=== PATIENT | male | born 1985 | race Caucasian/White ===

== ENCOUNTER 2020-02-15 13:04 | Outpatient (CLI) | payer BC, SELFPAY ==
--- NOTE | 2020-02-15 15:00 | NEURO_ITS ---
Patient Number: [id number] Impression: # Complains of paresthesia of upper extremities. # No Carpal Tunnel Syndrome. # Mild left ulnar neuropathy across the elbow. # Normal needle/EMG exam. # Clinical correlation recommended. Nerve Conduction Studies Anti Sensory Summary Table Stim Site NR Peak (ms) P-T Amp (?V) Site1 Site2 Delta-P (ms) Dist (cm) Edwar (m/s) Left Median Anti Sensory (2-3nd Digit) Wrist 2.7 76.9 Wrist 2-3nd Digit 2.7 14.0 52 Wrist 2.7 92.9 Wrist 2-3nd Digit 2.7 14.0 52 Right Median Anti Sensory (2-3nd Digit) Wrist 2.8 54.8 Wrist 2-3nd Digit 2.8 14.0 50 Wrist 2.7 64.3 Wrist 2-3nd Digit 2.8 14.0 50 Left Radial Anti Sensory (Base 1st Digit) Wrist 1.5 56.3 Wrist Base 1st Digit 1.5 0.0 Right Radial Anti Sensory (Base 1st Digit) Wrist 2.1 30.3 Wrist Base 1st Digit 2.1 0.0 Left Ulnar Anti Sensory (5th Digit) Wrist 2.7 77.6 Wrist 5th Digit 2.7 14.0 52 Right Ulnar Anti Sensory (5th Digit) Wrist 2.7 33.7 Wrist 5th Digit 2.7 14.0 52 Motor Summary Table Stim Site NR Onset (ms) O-P Amp (mV) Site1 Site2 Delta-0 (ms) Dist (cm) Edwar (m/s) Left Median Motor (Abd Poll Brev) Wrist 2.5 4.4 Elbow Wrist 5.2 30.0 58 Elbow 7.7 3.2 Right Median Motor (Abd Poll Brev) Wrist 3.0 1.5 Elbow Wrist 4.7 30.0 64 Elbow 7.7 3.9 Left Ulnar Motor (Abd Dig Minimi) Wrist 2.1 6.9 A Elbow Wrist 5.5 29.0 53 A Elbow 7.6 5.8 B Elbow Wrist 4.2 25.0 60 B Elbow 6.3 7.4 Right Ulnar Motor (Abd Dig Minimi) Wrist 2.3 11.4 A Elbow Wrist 5.3 30.0 57 A Elbow 7.6 9.1 F Wave Studies NR F-Lat (ms) L-R F-Lat (ms) Left Median (Mrkrs) (Abd Poll Brev) 27.56 0.08 Right Median (Mrkrs) (Abd Poll Brev) 27.48 0.08 Left Ulnar (Mrkrs) (Abd Dig Min) 26.92 0.49 Right Ulnar (Mrkrs) (Abd Dig Min) 26.43 0.49 EMG Side Muscle Nerve Root Ins Act Fibs Amp Dur Recrt Comment Right 1stDorInt Ulnar C8-T1 Nml Nml Nml Nml Nml Right Ext Indicis Radial (Post Int) C7-8 Nml Nml Nml Nml Nml Right Ext Digitorum Radial (Post Int) C7-8 Nml Nml Nml Nml Nml Right BrachioRad Radial C5-6 Nml Nml Nml Nml Nml Right PronatorTeres Median C6-7 Nml Nml Nml Nml Nml Right Abd Poll Brev Median C8-T1 Nml Nml Nml Nml Nml Left 1stDorInt Ulnar C8-T1 Nml Nml Nml Nml Nml Left Ext Indicis Radial (Post Int) C7-8 Nml Nml Nml Nml Nml Left Ext Digitorum Radial (Post Int) C7-8 Nml Nml Nml Nml Nml Left BrachioRad Radial C5-6 Nml Nml Nml Nml Nml Left PronatorTeres Median C6-7 Nml Nml Nml Nml Nml Left Abd Poll Brev Median C8-T1 Nml Nml Nml Nml Nml Right ABD Dig Min Ulnar C8-T1 Nml Nml Nml Nml Nml Right Biceps Musculocut C5-6 Nml Nml Nml Nml Nml Right Triceps Radial C6-7-8 Nml Nml Nml Nml Nml Right Deltoid Axillary C5-6 Nml Nml Nml Nml Nml Left ABD Dig Min Ulnar C8-T1 Nml Nml Nml Nml Nml Left Biceps Musculocut C5-6 Nml Nml Nml Nml Nml Left Triceps Radial C6-7-8 Nml Nml Nml Nml Nml Left Deltoid Axillary C5-6 Nml Nml Nml Nml Nml MTDD
== END 2020-02-15 13:05 | disposition home or self-care (01) ==
LOC: ANHNEURO 13:09
PROVIDERS: PCP Physician Assistant; Visit Provider Physician Assistant
DX: R20.2 Paresthesia of skin (principal); G56.22 Lesion of ulnar nerve, left upper limb
CPT/HCPCS: 95886; 95911

== ENCOUNTER → 2020-11-25 08:20 | Outpatient (CLI) | payer BC, SELFPAY ==
--- NOTE | ~2020-11-25 | CT_ITS ---
EXAMINATION: CT abdomen pelvis w con INDICATION: Chronic periumbilical pain TECHNIQUE: Computed tomographic images of the abdomen and pelvis were obtained after the administrati on of 100 cc of Omnipaque 350 intravenous contrast. The dose-length product (DLP) was 510.05 mGy-cm. Automated exposure control and iterative reconstruction technique were employed. COMPARISON: 12/01/2013 FINDINGS: The lung bases are clear. The heart size is normal. There is a small sliding hiatal hernia. The liver, spleen, pancreas, gallbladder, and adrenal glands are normal. The kidneys are unremarkabl e. No pathologically enlarged abdominal or pelvic lymph nodes are identified. A circumaortic left raphael al vein is noted. There is no free intraperitoneal gas or evidence of bowel obstruction. There are ch anges of periumbilical mesh ventral hernia repair. The appendix is normal. The visualized osseous str uctures are unremarkable. IMPRESSION: 1. Changes of periumbilical mesh ventral hernia repair without CT correlate identified for the patien t's symptoms. Reviewed, dictated and finalized at location A. IMPRESSION: 1. Changes of periumbilical mesh ventral hernia repair without CT correlate betty ntified for the patient's symptoms.
== END ==
PROVIDERS: PCP Physician Assistant; Visit Provider Physician Assistant
DX: R10.33 Periumbilical pain (principal)
CPT/HCPCS: 74177; Q9967

== ENCOUNTER 2024-11-10 08:17 | Outpatient (CLI) | payer BC, SELFPAY ==
--- NOTE | 2024-11-10 | EST_ITS ---
Patient Info Name: Cm Ayala Age: 39 years : 1985 Gender: Male Ht: 65 in Wt: 185 lbs BSA: 1.99 m2 HR: 66 bpm BP: 111 / 69 mmHg Exam Date: 11/10/2024 9:42 AM Exam Location: [facility] Patient Status: Outpatient Admit Date: 11/10/2024 Staff Ordering Physician: Michael, Maisha WALLACE Attending Provider: MichaelMaisha PA-C Exercise Technologist: Shasha Pereira RDCS Exercise Physician: Edward Felix DO Exam Type: CA stress test treadmill w NM Study Info A nuclear stress test was performed. Summary 1. 1. Negative Ashkan exercise stress test for ischemic ST changes by ECG criteria. 2. 2. Good functional capacity, achieving 12 METs of workload. 3. 3. Appropriate HR response to exercise. 4. 4. Appropriate HR recovery at 1 minute post exercise. 5. 5. Nuclear scan to follow and will be reported separately. Please correlate with it. 6. 6. Patient informed of the above results. Protocol: Ashkan Stress ECG Details Stage: REST Duration (min): 1 min : 38 sec Speed (mph): 0.0 Grade (%): 0 HR (bpm): 66 SBP (mmHg): 111 DBP (mmHg): 69 METS: --- Stage: REST Duration (min): 3 min : 51 sec Speed (mph): 0.0 Grade (%): 0 HR (bpm): 73 SBP (mmHg): 111 DBP (mmHg): 69 METS: --- Stage: STAGE 1 Duration (min): 1 min : 0 sec Speed (mph): 1.7 Grade (%): 10 HR (bpm): 92 SBP (mmHg): 111 DBP (mmHg): 69 METS: --- Stage: STAGE 1 Duration (min): 2 min : 0 sec Speed (mph): 1.7 Grade (%): 10 HR (bpm): 91 SBP (mmHg): 111 DBP (mmHg): 69 METS: --- Stage: STAGE 1 Duration (min): 3 min : 0 sec Speed (mph): 1.7 Grade (%): 10 HR (bpm): 91 SBP (mmHg): 129 DBP (mmHg): 61 METS: --- Stage: STAGE 2 Duration (min): 1 min : 0 sec Speed (mph): 2.5 Grade (%): 12 HR (bpm): 99 SBP (mmHg): 129 DBP (mmHg): 61 METS: --- Stage: STAGE 2 Duration (min): 2 min : 0 sec Speed (mph): 2.5 Grade (%): 12 HR (bpm): 103 SBP (mmHg): 143 DBP (mmHg): 68 METS: --- Stage: STAGE 2 Duration (min): 3 min : 0 sec Speed (mph): 2.5 Grade (%): 12 HR (bpm): 105 SBP (mmHg): 143 DBP (mmHg): 68 METS: --- Stage: STAGE 3 Duration (min): 1 min : 0 sec Speed (mph): 3.4 Grade (%): 14 HR (bpm): 122 SBP (mmHg): 144 DBP (mmHg): 70 METS: --- Stage: STAGE 3 Duration (min): 2 min : 0 sec Speed (mph): 3.4 Grade (%): 14 HR (bpm): 125 SBP (mmHg): 144 DBP (mmHg): 70 METS: --- Stage: STAGE 3 Duration (min): 3 min : 0 sec Speed (mph): 3.4 Grade (%): 14 HR (bpm): 136 SBP (mmHg): 178 DBP (mmHg): 67 METS: --- Stage: STAGE 4 Duration (min): 1 min : 0 sec Speed (mph): 4.2 Grade (%): 16 HR (bpm): 150 SBP (mmHg): 178 DBP (mmHg): 67 METS: --- Stage: STAGE 4 Duration (min): 2 min : 0 sec Speed (mph): 4.2 Grade (%): 16 HR (bpm): 158 SBP (mmHg): 185 DBP (mmHg): 71 METS: --- Stage: STAGE 4 Duration (min): 3 min : 0 sec Speed (mph): 4.2 Grade (%): 16 HR (bpm): 161 SBP (mmHg): 185 DBP (mmHg): 71 METS: --- Stage: RECOVERY Duration (min): 0 min : 59 sec Speed (mph): 0.0 Grade (%): 0 HR (bpm): 131 SBP (mmHg): 178 DBP (mmHg): 59 METS: --- Stage: RECOVERY Duration (min): 1 min : 59 sec Speed (mph): 0.0 Grade (%): 0 HR (bpm): 113 SBP (mmHg): 178 DBP (mmHg): 59 METS: --- Stage: RECOVERY Duration (min): 2 min : 59 sec Speed (mph): 0.0 Grade (%): 0 HR (bpm): 110 SBP (mmHg): 146 DBP (mmHg): 70 METS: --- Stage: RECOVERY Duration (min): 3 min : 33 sec Speed (mph): 0.0 Grade (%): 0 HR (bpm): 105 SBP (mmHg): 146 DBP (mmHg): 70 METS: --- Rest HR: 73 bpm Peak HR: 162 bpm Rest Sys BP: 111 mmHg Peak Sys BP: 185 mmHg Max Pred HR: 180 bpm % Max Pred HR: 90 % Target HR: 153 bpm Max RPP: 29,970 bpm*mmHg Hilton Score: -2 Termination Reason: Reached target heart rate or workload Cardiac Symptoms: Shortness of breath Max ST Seg Deviation: 3 mm Total Time: 12 min : 0 sec Rest Harman BP: 69 mmHg Peak Harman BP: 71 mmHg Angina Score: None Total METS: 12.1 Resting ECG Sinus rhythm, minimal Q waves in inf/lat leads. Stress ECG No ST changes. Arrhythmias None. Report Signatures
--- NOTE | ~2024-11-10 | NM_ITS ---
NM stress w perf spect multi Procedure: The patient was stressed using Modified Ashkan protocol. Prior to the end of exercise 32.1 mCi Tc 99m IV administered. Rest imaging performed following administration of 10.2 mCi Tc 99m IV. Images were reformatted into short axis, horizontal and vertical long axis sections for visual and q uantitative analysis. Indication: Atypical chest pain Comparison: None Findings: Computer assisted qualitative and quantitative analysis of the immediate and delayed images revealed normal left ventricular perfusion without evidence of fixed or reversible perfusion abnorma lity to suggest ischemia or infarction. Normal left ventricular cavity size, wall motion and ejectio n fraction. Left ventricular ejection fraction measures 70%. Impression: 1: No scintigraphic evidence of resting or stress induced perfusion abnormality. 2: Normal left ventricle ejection fraction measuring 70%. Reviewed, dictated and finalized at location B. Impression: 1: No scintigraphic evidence of resting or stress induced perfusion abnormality . 2: Normal left ventricle ejection fraction measuring 70%.
--- OUTSIDE RECORDS SUMMARY | 2024-11-10 08:29 | XMS_ITS | Data Portability ---
Author Organization [place] - [facility], Main Office Address [address] [place] [address] Care Team Providers Care Marking Clerk Name Role Phone MANASA RHODES Primary Care Provider MANASA RHODES Referring Provider Assessment No assessment recorded. Plan of Treatment Reminders Order Date Submit Date Provider Last Modified By Organization Details Last Modified Time Details Appointments None record ed. Lab None record ed. Referral None record ed. Procedures None record ed. Surgeries None record ed. Imaging None record ed. Medication Orders None record ed. Patient TargetsNo targets recorded. Patient InstructionsNo instructions recorded. Reason for Referral None Reported. Results Created Date Observation Date Name Description Value Unit Range Abnormal Flag Note LastModifiedBy Organization Detail LastModifiedTime 07/23/20 21 07/26/2021 VITAM IN B12 vitamin B12 388 pg/mL 200-11 00 normal Pleas e Note: Altho ugh the refer ence range for vitam in B12 is 200-1 100 pg/mL , it has been repor pato that betwe en 5 and 10% of patie nts with value s betwe en 200 and 400 pg/mL may exper ience neuro psych iatri c and hemat ologi c abnor malit ies due to occul t B12 defic iency ; less than 1% of patie nts with value s above 400 pg/mL will have sympt oms. Not Available [facility] [address] [place], [address], 07/26/2021 14:32:10 07/23/20 21 07/26/2021 CBC (INCL UDES DIFF/ PLT) white blood cell count 5.1 thous and/u L 3.8-10 .8 normal Not Available [facility] [address] [place], [address], 07/26/2021 14:32:09 07/23/20 21 07/26/2021 CBC (INCL UDES DIFF/ PLT) red blood cell count 4.93 loreto on/uL 4.20-5 .80 normal Not Available [address], [address], 07/26/2021 14:32:09 07/23/20 21 07/26/2021 CBC (INCL UDES DIFF/ PLT) hemoglobin 15.1 g/dL 13.2-1 7.1 normal Not Available [address], [address], 07/26/2021 14:32:09 07/23/20 21 07/26/2021 CBC (INCL UDES DIFF/ PLT) hematocrit 43.8 % 38.5-5 0.0 normal Not Available [address], [address], 07/26/2021 14:32:09 07/23/20 21 07/26/2021 CBC (INCL UDES DIFF/ PLT) MCV 88.8 fL 80.0-1 00.0 normal Not Available [address], [address], 07/26/2021 14:32:09 07/23/20 21 07/26/2021 CBC (INCL UDES DIFF/ PLT) MCH 30.6 pg 27.0-3 3.0 normal Not Available [address], [address], 07/26/2021 14:32:09 07/23/20 21 07/26/2021 CBC (INCL UDES DIFF/ PLT) MCHC 34.5 g/dL 32.0-3 6.0 normal Not Available [address], [address], 07/26/2021 14:32:09 07/23/20 21 07/26/2021 CBC (INCL UDES DIFF/ PLT) RDW 11.9 % 11.0-1 5.0 normal Not Available [address], [address], 07/26/2021 14:32:09 07/23/20 21 07/26/2021 CBC (INCL UDES DIFF/ PLT) platelet count 267 thous and/u L 140-40 0 normal Not Available [address], [address], 07/26/2021 14:32:09 07/23/20 21 07/26/2021 CBC (INCL UDES DIFF/ PLT) MPV 11.8 fL 7.5-12 .5 normal Not Available [address], [address], 07/26/2021 14:32:07/23/20 21 07/26/2021 CBC (INCL UDES DIFF/ PLT) absolute neutrophils 2907 cells /uL 1500-7 800 normal Not Available [address], [address], 07/26/2021 14:32:09 07/23/20 21 07/26/2021 CBC (INCL UDES DIFF/ PLT) absolute lymphocytes 1744 cells /uL 850-39 00 normal Not Available [address], [address], 07/26/2021 14:32:09 07/23/20 21 07/26/2021 CBC (INCL UDES DIFF/ PLT) absolute monocytes 347 cells /uL 200-95 0 normal Not Available [address], [address], 07/26/2021 14:32:09 07/23/20 21 07/26/2021 CBC (INCL UDES DIFF/ PLT) absolute eosinophils 71 cells /uL 15-500 normal Not Available [address], [address], 07/26/2021 14:32:09 07/23/20 21 07/26/2021 CBC (INCL UDES DIFF/ PLT) absolute basophils 31 cells /uL 0-200 normal Not Available [facility] [address], [address], 07/26/2021 14:32:09 07/23/20 21 07/26/2021 CBC (INCL UDES DIFF/ PLT) neutrophils 57 % normal Not Available [facility] [address], [address], 07/26/2021 14:32:09 07/23/20 21 07/26/2021 CBC (INCL UDES DIFF/ PLT) lymphocytes 34.2 % normal Not Available [facility] [address], [address], 07/26/2021 14:32:09 07/23/20 21 07/26/2021 CBC (INCL UDES DIFF/ PLT) monocytes 6.8 % normal Not Available [facility] [address], [address], 07/26/2021 14:32:09 07/23/20 21 07/26/2021 CBC (INCL UDES DIFF/ PLT) eosinophils 1.4 % normal Not Available [facility] [address], [address], 07/26/2021 14:32:09 07/23/20 21 07/26/2021 CBC (INCL UDES DIFF/ PLT) basophils 0.6 % normal Not Available [facility] [address], [address], 07/26/2021 14:32:09 07/23/20 21 07/26/2021 COMPR EHENS MAYO METAB OLIC PANEL , PLASM A glucose 85 mg/dL 65-99 normal Fasti ng refer ence inter blair Not Available [facility] [address], [address], 07/26/2021 14:32:09 07/23/20 21 07/26/2021 COMPR EHENS MAYO METAB OLIC PANEL , PLASM A urea nitrogen (BUN) 10 mg/dL 7-25 normal Not Available [address], [address], 07/26/2021 14:32:09 07/23/20 21 07/26/2021 COMPR EHENS MAYO METAB OLIC PANEL , PLASM A creatinine 0.86 mg/dL 0.60-1 .35 normal Not Available [address], [address], 07/26/2021 14:32:09 07/23/20 21 07/26/2021 COMPR EHENS MAYO METAB OLIC PANEL , PLASM A eGFR non-afr. ecuadorean 111 mL/mi n/1.7 3m2 > or = 60 normal Not Available [address], [address], 07/26/2021 14:32:09 07/23/20 21 07/26/2021 COMPR EHENS MAYO METAB OLIC PANEL , PLASM A eGFR 128 mL/mi n/1.7 3m2 > or = 60 normal Not Available [address], [address], 07/26/2021 14:32:09 07/23/20 21 07/26/2021 COMPR EHENS MAYO METAB OLIC PANEL , PLASM A BUN/creatini ne ratio not applic able (calc ) 6-22 Not Available [address], [address], 07/26/2021 14:32:09 07/23/20 21 07/26/2021 COMPR EHENS MAYO METAB OLIC PANEL , PLASM A sodium 139 mmol/ L 135-14 6 normal Not Available [address], [address], 07/26/2021 14:32:09 07/23/20 21 07/26/2021 COMPR EHENS MAYO METAB OLIC PANEL , PLASM A potassium 3.9 mmol/ L 3.4-4. 8 normal Not Available [address], [address], 07/26/2021 14:32:09 07/23/20 21 07/26/2021 COMPR EHENS MAYO METAB OLIC PANEL , PLASM A chloride 103 mmol/ L 98-110 normal Not Available [address], [address], 07/26/2021 14:32:09 07/23/20 21 07/26/2021 COMPR EHENS MAYO METAB OLIC PANEL , PLASM A carbon dioxide 25 mmol/ L 20-32 normal Not Available [address], [address], 07/26/2021 14:32:09 07/23/20 21 07/26/2021 COMPR EHENS MAYO METAB OLIC PANEL , PLASM A calcium 9.3 mg/dL 8.6-10 .3 normal Not Available [address], [address], 07/26/2021 14:32:09 07/23/20 21 07/26/2021 COMPR EHENS MAYO METAB OLIC PANEL , PLASM A protein, total 7.2 g/dL 6.4-8. 4 normal Not Available [address], [address], 07/26/2021 14:32:09 07/23/20 21 07/26/2021 COMPR EHENS MAYO METAB OLIC PANEL , PLASM A albumin 4.8 g/dL 3.6-5. 1 normal Not Available [address], [address], 07/26/2021 14:32:09 07/23/20 21 07/26/2021 COMPR EHENS MAYO METAB OLIC PANEL , PLASM A globulin 2.4 g/dL_ (calc ) 2.2-4. 0 normal Not Available [address], [address], 07/26/2021 14:32:09 07/23/20 21 07/26/2021 COMPR EHENS MAYO METAB OLIC PANEL , PLASM A albumin/glob ulin ratio 2.0 (calc ) 0.9-2. 3 normal Not Available [address], [address], 07/26/2021 14:32:09 07/23/20 21 07/26/2021 COMPR EHENS MAYO METAB OLIC PANEL , PLASM A bilirubin, total 0.5 mg/dL 0.2-1. 2 normal Not Available [address], [address], 07/26/2021 14:32:09 07/23/20 21 07/26/2021 COMPR EHENS MAYO METAB OLIC PANEL , PLASM A alkaline phosphatase 70 U/L 36-130 normal Not Available [address], [address], 07/26/2021 14:32:09 07/23/20 21 07/26/2021 COMPR EHENS MAYO METAB OLIC PANEL , PLASM A AST 22 U/L 10-40 normal Not Available [address], [address], 07/26/2021 14:32:09 07/23/20 21 07/26/2021 COMPR EHENS MAYO METAB OLIC PANEL , PLASM A ALT 23 U/L 9-46 normal Not Available [address], [address], 07/26/2021 14:32:09 07/23/20 21 07/26/2021 TSH+F REE T4 TSH 1.09 mIU/L 0.40-4 .50 normal Not Available [address], [address], 07/26/2021 14:32:08 07/23/2007/26/2021 TSH+F REE T4 T4, free 0.9 NG/dL 0.8-1. 8 normal Not Available [address], [address], 07/26/2021 14:32:08 07/23/2007/26/2021 TESTO STERO NE, FREE, BIOAV AILAB LE AND TOTAL , MS albumin 4.8 g/dL 3.6-5. 1 Not Available [address], [address], 07/26/2021 14:32:08 07/23/2007/26/2021 TESTO STERO NE, FREE, BIOAV AILAB LE AND TOTAL , MS sex hormone binding globulin 27.1 nmol/ L 10-50 Not Available [address], [address], 07/26/2021 14:32:08 07/23/2007/26/2021 TESTO STERO NE, FREE, BIOAV AILAB LE AND TOTAL , MS testosterone , free 88.4 pg/mL 46.0-2 24.0 Not Available [address], [address], 07/26/2021 14:32:08 07/23/2007/26/2021 TESTO STERO NE, FREE, BIOAV AILAB LE AND TOTAL , MS testosterone ,bioavailabl e 193.3 NG/dL 110.0- 575.0 Not Available [address], [address], 07/26/2021 14:32:08 07/23/2007/26/2021 TESTO STERO NE, FREE, BIOAV AILAB LE AND TOTAL , MS testosterone , total, MS 560 NG/dL 250-11 00 For addit ional infor zack cooley e refer to https ://ed ucati on.qu jessedi elbaGoodRxs. com/f aq/FA Q165 (This link is being provi ded for infor randi nal/e ducat ional purpo ses only. ) (Note ) This test was devel oped and its nirmal tical perfo rmanc e yessica cteri stics have been deter mined by [employer]. It has not been clear ed or appro lincoln by the FDA. This assay has been valid ated pursu ant to the CLIA regul ation s and is used for clini jesus purpo ses. MDF med saundra n [address] [facility] [address] [facility] [address] [phone] Carter neal MD Not Available [address] [address] [place], [address], 07/26/2021 14:32:08 07/23/20 21 07/26/2021 IRON, TIBC AND KT TIN PANEL iron, total 137 mcg/d L 50-180 normal Not Available [address], [address], 07/26/2021 14:32:06 07/23/20 21 07/26/2021 IRON, TIBC AND KT TIN PANEL iron binding capacity 359 mcg/d L_(ca lc) 250-42 5 normal Not Available [address], [address], 07/26/2021 14:32:06 07/23/20 21 07/26/2021 IRON, TIBC AND KT TIN PANEL % saturation 38 %_(ca lc) 20-48 normal Not Available [address], [address], 07/26/2021 14:32:06 07/23/20 21 07/26/2021 IRON, TIBC AND KT TIN PANEL ferritin 146 NG/mL 38-380 normal Not Available [facility] [address] [address] , [place], [address], 07/26/2021 14:32:06 07/24/20 21 XR, shoul pavan, 2 or more view No observ ation record ed. [id number] [id number] [place] [address], [place], [address], 09/23/2022 17:31:35 Result Notes None recorded. Problems Name Problem SNOMED Code Status Onset Date Resolution Date Notes Provider Name and Address Organization Details Recorded Time Tobacco user 500120354 Active Not Available [facility] 3 17:30:19 Irritability and anger 140581551 Active 2021 Not Available [facility] 3 17:30:19 Acute low back pain 869159326 Active 2021 Not Available [facility] 3 17:30:19 Depressive disorder 04822309 Active 2021 Not Available [facility] 3 17:30:19 Inflammation of rotator cuff tendon 277143028 Active Not Available [facility] 3 17:30:19 Shoulder pain 47189028 Active Not Available [facility] 3 17:30:19 Feeling irritable 12892885 Active Not Available [facility] 3 17:30:19 Pain in wrist 41657925 Active Not Available [facility] 3 17:30:19 Synovial cyst of shoulder 311266944 Active 2021 Not Available [facility] 3 17:30:19 Fatigue 00029511 Active 2022 Not Available [facility] 3 17:30:20 Altered bowel function 38831182 Active 2022 Not Available [facility] 3 17:30:20 Umbilical pain 53136575 Active 2022 Not Available [facility] 3 17:30:20 Problem Notes None recorded. Procedures Surgical History Date Name Laterality Status Provider Name and Address Organization Details Recorded Time Hernia Repair completed Not Available [facility] 09/23/2022 17:29:22 other completed Not Available [facility] 07/2022 17:29:22 extraction of wisdom tooth completed Not Available [facility] 09/23/2022 17:29:22 Imaging Results Imaging Date Name Status LastModified by Organiz ation Details LastModified Time 07/24/2021 XR, shoulder, 2 or more view completed [id number] [id number] [place] [address], [place], [address], 09/23/2022 17:31:35 Procedure Notes None recorded. Medical Equipment None Reported. Allergies No known drug allergies Medications Name Sig Start Date Stop Date Status Note LastModified by Organization Details LastModified Time cyclobenz aprine 10 mg tablet TAKE 1 TABLET BY MOUTH THREE TIMES DAILY NEEDED active Not Available Not Available No t Available prednison e 10 mg tablet 11/28 completed Not Available Not Available Not Available albuterol sulfate 2.5 mg/3 mL (0.083 %) solution for nebulizat ion 08/17 completed Not Available Not Available Not Available citalopra m 10 mg tablet Take 1 tablet every day by oral route. 05/31 completed Not Available Not Available Not Available valacyclo vir 1 gram tablet TK 1 T PO TID 03/10 completed Not Available Not Available Not Available bupivacai ne HCl 0.5 % (5 mg/mL) injection solution Take 20 mg by injectio n route. 11/28 completed Not Available Not Available Not Available prednison e 20 mg tablet 04/09 completed Not Available Not Available Not Available clobetaso l 0.05 % topical cream APPLY TO INFLAMED SKIN ON ARMS AND LEGS TWICE DAILY NEEDED. AVOID FACE AND SKIN FOLDS. active Not Available Not Available No t Available prednison e 10 mg tablets in a dose pack Take 1 tab by mouth, 3 times a day for 3 daysTake 1 tab by mouth 2 times a day for 2 daysTake 1 tab by mouth once a day for 1 day 11/28 completed Not Available Not Available Not Available meloxicam 7.5 mg tablet 08/18 completed Not Available Not Available Not Available citalopra m 20 mg tablet TAKE 1.5 TABLETS BY MOUTH EVERY DAY IN THE EVENING active Not Available Not Available No t Available Kenalog 10 mg/mL suspensio n for injection In office injectio n administ ered by the provider 11/[address] [facility]: [id number] 11-12 Not Available Not Available Not Available diclofena c sodium 75 mg tablet,de layed release Take 1 tablet twice a day by oral route with meals. active Not Available Not Available No t Available methylpre dnisolone 4 mg tablets in a dose pack FOLLOW PACKAGE DIRECTIO NS 04/29 completed Not Available Not Available Not Available doxycycli ne hyclate 100 mg tablet 04/09 completed Not Available Not Available Not Available naproxen 500 mg tablet Take 1 tablet twice a day by oral route with meals. active Not Available Not Available No t Available amoxicill in 875 mg-potass ium clavulana te 125 mg tablet TK 1 T PO Q 12 H 01/25 completed Not Available Not Available Not Available Ventolin HFA 90 mcg/actua tion aerosol inhaler 03/10 completed Not Available Not Available Not Available tobramyci n 0.3 %-dexamet hasone 0.1 % eye drops,harman pension SHAKE LQ AND INT 1 GTT IN OS Q 6 H 01/27 completed Not Available Not Available Not Available Chantix Continuin g Month Celestine 1 mg tablet Take 1 tablet twice a day by oral route. 08/18 completed pt stopped it and hasnt taken it for awhile. Not Available Not Available Not Available Chantix Starting Month Box 0.5 mg (11)-1 mg (42) tablets in dose pack use as directed active Not Available Not Available No t Available Opzelura 1.5 % topical cream 10/09 completed Not Available Not Available Not Available Vitals Date Recorded Body mass index (BMI) Body height Oxygen saturation Oxygen saturation in Arterial blood by Pulse oximetry Heart rate Body temperature Body weight Systolic blood pressure Diastolic blood pressure Provider Name and Address Organization Details Last Updated DateTime 1 28.7 kg/m2 167.64 cm 97 % 97 % 68 /min 97.6 [degF] 38096 g 110 mm[Hg] 70 mm[Hg] Not Available [facility] 3 17:29:52 Date Recorded Body mass index (BMI) Body height Pain severity - 0-10 verbal numeric rating [Score] - Reported Body weight Provider Name and Address Organization Details Last Updated DateTime 07/24/2021 25.8 kg/m2 167.64 cm 6 49530.78 g Not Available [facility] 09/23/2022 17:29:55 Date Recorded Body mass index (BMI) Body height Oxygen saturation Oxygen saturation in Arterial blood by Pulse oximetry Heart rate Respiratory rate Body temperature Body weight Systolic blood pressure Diastolic blood pressure Provider Name and Address Organization Details Last Updated DateTime 2 29.2 kg/m2 167.64 cm 97 % 97 % 83 /min 16 /min 97.6 [degF] 47678.9 4 g 120 mm[Hg] 80 mm[Hg] Not Available [facility] 3 17:29:52 Date Recorded Body height Oxygen saturation Oxygen saturation in Arterial blood by Pulse oximetry Heart rate Respiratory rate Body temperature Systolic blood pressure Diastolic blood pressure Provider Name and Address Organization Details Last Updated DateTime 2 167.64 cm 98 % 98 % 74 /min 16 /min 98 [degF] 124 mm[Hg] 86 mm[Hg] Not Available [facility] 3 17:29:52 Date Recorded Body height Body temperature Body mass index (BMI) Body weight Heart rate Oxygen saturation Oxygen saturation in Arterial blood by Pulse oximetry Systolic blood pressure Diastolic blood pressure Provider Name and Address Organization Details Last Updated DateTime 3 167.64 cm 97.6 [degF] 29.7 kg/m2 28282 g 88 /min 99 % 99 % 118 mm[Hg] 78 mm[Hg] Samantha Lewis RN [place] [facility] 3 16:40:09 Social History Question Answer Notes LastModified by Organizat ion Details LastModified Time Tobacco Smoking Status Current Every Day Smoker Not Available [facility] 09/23/2022 17:29:11 Do You Have An Advance Directive? No [id number] Information not available 09/23/2022 What Is Your Level Of Alcohol Consumption? Occasional [id number] Information not available 09/23/2022 Do You Wear A Helmet When Biking? No MIGRATION.[id number] 9387 Information not available 09/23/2022 What Is Your Level Of Caffeine Consumption? Occasional [id number].[id number] Information not available 09/23/2022 In The 14 Days Before Symptom Onset, Have You Had Close Contact With A Laboratory-confir med COVID-19 While That Case Was Ill? No [id number] Information not available 09/23/2022 In The 14 Days Before Symptom Onset, Have You Had Close Contact With A Person Who Is Under Investigation For COVID-19 While That Person Was Ill? No [id number].[id number] 2906 Information not available 09/23/2022 Are You Currently Employed? Yes [email or web address] Information not available 10/09/2022 What Type Of Diet Are You Following? REGULAR MIGRATION.[id number] 0265 Information not available 09/23/2022 What Is The Highest Grade Or Level Of School You Have Completed Or The Highest Degree You Have Received? 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 No MIGRATION.[id number] 8969 Information not available 09/23/2022 Are There Any Guns Present In Your Home? No MIGRATION.222539 6231 Information not available 09/23/2022 Do You Use Insect Repellent Routinely? No MIGRATION.559610 8767 Information not available 09/23/2022 Do You Have A Medical Power Of Director Of Distribution? No MIGRATION.[id number] 0451 Information not available 09/23/2022 What Was The Date Of Your Most Recent Tobacco Screening? 07/24/2021 [id number].[id number] 0350 Information not available 09/23/2022 Have You Ever Been Counseled For Unhealthy Alcohol Use? No MIGRATION.129179 9523 Information not available 09/23/2022 What Is Your Relationship Status? MIGRATION.851998 9436 Information not available 09/23/2022 Do You Use Your Seat Belt Or Car Seat Routinely? Yes MIGRATION.227050 4074 Information not available 09/23/2022 Do You Have Smoke And Carbon Monoxide Detectors In Your Home? Yes MIGRATION.403120 9849 Information not available 09/23/2022 At What Age Did You Start Smoking Tobacco? 17 MIGRATION.330739 6321 Information not available 09/23/2022 Do You Feel Stressed (tense, Restless, Nervous, Or Anxious, Or Unable To Sleep At Night)? [id number] MIGRATION.207017 2033 Information not available 09/23/2022 Do You Use Any Illicit Or Recreational Drugs? No MIGRATION.006585 6607 Information not available 09/23/2022 Do You Use Sunscreen Routinely? No MIGRATION.367287 0847 Information not available 09/23/2022 Has Tobacco Cessation Counseling Been Provided? No MIGRATION.008746 0613 Information not available 09/23/2022 Have You Recently Traveled Abroad? No MIGRATION.124387 0040 Information not available 09/23/2022 Do You Have Any Dietary Restrictions? No MIGRATION.158411 8321 Information not available 09/23/2022 Do You Or Have You Ever Used Any Other Forms Of Tobacco Or Nicotine? No MIGRATION.629663 9216 Information not available 09/23/2022 Sex: Unknown Functional Status Question Answer Note LastModified by Organizat ion Details LastModified Time What is your exercise level? Moderate [id number] Information not available 09/23/2022 Mental Status None recorded. Family History Relationship Description Onset Age of this Age Resolved Age Notes LastModified by Organization Details LastModified Time Mother Diabetes mellitus [id number] Not available 09/23/2022 17:29:22 Father Malignant neoplastic disease 62 [id number] Not available 09/23/2022 17:29:22 Medical History Condition Response SKIN PROBLEMS Y ANXIETY DISORDER Y ECZEMA Y DEPRESSION (INCLUDING POST ) Y Past Encounters Encounter ID Performer Location Encounter Start Date Encounter Closed Date Diagnosis/Indication Diagnosis SNOMED-CT Code Diagnosis ICD10 Code Diagnosis Note [id number] [facility] [place] [address] [place] [address] 05/05/2021 00:00:00 05/24/2021 15:37:12 [id number] [facility] [place] [address] [facility] [address] [place] [address] 07/24/2021 00:00:00 08/02/2021 08:55:32 [id number] [facility] [place] [address] [facility] [place] [address] 12/01/2021 00:00:00 12/23/2021 18:43:26 [id number] [facility] [place] [address] [place] [address] 04/29/2022 00:00:00 05/25/2022 14:02:00 [id number] ROMI Gaston [facility] [place] [address] [place] [address] 10/12/2022 16:33:48 10/12/2022 17:00:58 Feeling irritable 53430590 R45.4 stable on citalopram 20mg daily. Long-term drug therapy 931906606 Z79.899 pt has labs to complete still. orders were given again prior to appt Health Concerns Section Related Observation LastModified by Organization Detai ls LastModified Time None Recorded Concern Status LastModified by Organization Details LastModified Time None Recorded Advance Directives Directive N: Payers Encounter Date Sequence Insurance Name Policy Number Policy Perales Covered Member ID Perales Member ID Guarantor Name 10/12/2022 1 [place] [id number] Cm Ayala [id number] Cm Ayala Notes Date Note Type Note Provider Name and Address Organization Details Recorded Time 1 text/html Anxiety, Generalized DisorderReported bypatient.Associated Symptoms:no difficulty concentrating; no difficulty controlling worry; no difficulty swallowing; no anxiety; no excessive sweating; no hot flashes; no palpitations; no shortness of breath; no nausea; no diarrhea; no fatigue; no irritability; no muscle tension; no muscle aches; no trembling; no twitching; no headaches; no restlessness; no sleep disturbancesNotes:stable on citalopram but could be better pt states.Bowel Complaints/Fecal IncontinenceReported bypatient.Quality:constip ation; diarrhea; variable; worsening Severity:mild Duration:present for 1-6 months Onset/Timing:once every two days Context:no recent opiates; no recent surgery; normal toileting ability; no history of IBS; no history of colonoscopy; no history of diverticulosis; no abnormal imaging Aggravating factors:diet Associated Symptoms:no cramping; no nausea; no vomiting; no weight loss; no heartburn; no blood in stoolFatigueReported bypatient.Status:acute; worse Quality:generalized; throught the day/evening Severity:normal sleep patterns; normal exercise habits; normal activity Duration:constant; symptoms lasting over 2 weeks Timing:gradual; progressive Context:symptoms do not improve when at home versus on the job Modifying Factors:no new stressors in life Associated Symptoms:no depression; no anxiety; no sleep disturbances; normal sleep; no apnea; no weight loss; no weight gain; no chest pain; no rash; no SOB; no dizziness; no sore throat; no joint pain; no headache; no exertional fatigue; no tender, swollen glands; no fever Not Available [employer] 05/24/2021 15:37:12 1 text/html ShoulderReported bypatient.Hand Dominance:right Location:left; anterior; lateral Quality:throbbing; frequent Severity:moderate Timing:recurrent; occasional Duration:continuous since onset Aggravating Factors:pushing/pulling; throwing; damp weather Alleviating Factors:rest; elevation; stretching; NSAIDs Associated Symptoms:no weakness; no numbness; no tingling; no redness; no ecchymosis; no catching/locking; no popping/clicking; no buckling; no grinding; no instability; no radiation down arm; no drainage; no fever; no chills; no weight loss; no change in bowel/bladder habits;swelling;warmth Not Available [employer] 08/02/2021 08:55:32 2 text/html Anxiety/DepressionReporte d bypatient.Quality:symptom s improved Severity:denies suicidal ideations; able to maintain relationships; does not interfere with activities of daily living Duration:symptoms lasting over 2 weeks Onset/Timing:still present Context:no major life stressors Modifying Factors:medications as directed Associated Symptoms:denies homicidal ideations; no significant weight gain; no significant weight loss; no visual/auditory hallucinations; no delusions; no shortness of breath; mood good; no anxiety; no crying spells; no panic; no isolation; sleeping well; appetite good; energy good; no apathy; maintaining functionality Generic HPI TemplateReported bypatient.Location:R shoulder Quality:lump Severity:not changing Duration:constant Onset/Timing:couple months Context:unknown. Not Available [employer] 12/23/2021 18:43:26 2 text/html Anxiety/DepressionReporte d bypatient.Severity:denies suicidal ideations; able to maintain relationships; does not interfere with activities of daily living Context:no major life stressors Associated Symptoms:denies homicidal ideations; no significant weight gain; no significant weight loss; no visual/auditory hallucinations; no delusions; no shortness of breath; mood good; no anxiety; no crying spells; no panic; no isolation; sleeping well; appetite good; energy good; no apathy; maintaining functionalityBack Pain - GeneralReported bypatient.Location:pain radiating to back of bilateral thigh(s) Quality:tightness Severity:improving Duration:intermittent Timing:sudden Alleviating Factors:rest; prescribed medication(s) Aggravating Factors:movement/position ing Associated Symptoms:no fever; no weak limbs; no tingling; no numbness of the legs/feet; no incontinence; no shortness of breathNotes:States pain resolved following tx with steroid Not Available [employer] 05/25/2022 14:02:00 3 text/html DepressionReported bypatient.Severity:denies suicidal ideations; able to maintain relationships; does not interfere with activities of daily living Context:no major life stressors Associated Symptoms:denies homicidal ideations; no significant weight gain; no significant weight loss; no visual/auditory hallucinations; no delusions; no shortness of breath; mood good; no anxiety; no crying spells; no panic; no isolation; sleeping well; appetite good; energy good; no apathy; maintaining functionality ROMI Gaston [address], [address], [facility] [employer] 10/23/2022 10:50:04
--- OUTSIDE RECORDS SUMMARY | 2024-11-10 08:29 | XMS_ITS | Data Portability ---
Author Organization [facility] NEREYDADerek Ethan Address [address] [facility] [facility] [place] [place] [address] Care Team Providers Care Air And Water Tester Name Role Phone MANASA RHODES Primary Care Provider Unavailab le Assessment No assessment recorded. Plan of Treatment Reminders Order Date Submit Date Provider Last Modified By Organization Details Last Modified Time Details Appointments ANY 15 2024 03:30P M ROMI Gaston Not available Not available Not available Lab TSH + free T4, serum 2024 025 [employer] [facility], [facility] [place], [address], 10/02/2024 10:24:13 lipid panel, serum 2024 025 [facility], [address] [place], [address], 10/02/2024 10:22:35 CBC w/ auto diff 2024 025 [facility], [facility] [place], [address], 10/02/2024 10:23:12 CMP, serum or plasma 2024 025 [facility] [employer] [facility], [address] [place], [address], 10/02/2024 10:22:47 vitami n B12 + folate , serum or blood 2024 025 [facility], [address] [place], [address], 10/02/2024 10:23:23 testos terone , total, serum 2024 025 [employer] [facility], [facility] [place], [address], 10/02/2024 10:24:24 PSA, serum or plasma 2024 025 [facility], [facility] [place], [address], 10/02/2024 10:23:34 HbA1c (hemog lobin A1c), blood 2024 025 [facility] [employer] [facility], [facility] [place], [address], 10/02/2024 10:23:00 Referral None record ed. Procedures treadm ill nuclea r stress test (PROC) [address] (Cardiology [facility] Emg), [address], [place], [address], 10/26/2024 12:53:22 Surgeries None record ed. Imaging None record ed. Medication Orders citalo pram 20 mg tablet 2023 024 [id number], [address], [place], [place], [id number], 03/08/2024 15:50:34 Patient TargetsNo targets recorded. Patient Instructions Encounter Date Encounter Id Patient Instructions Last Modified By Organization Details Last Modified Time 03/08/2024 [id number] A healthy lifestyle: care instructions [email or web address] Not available 03/08/2024 15:50:27 Reason for Referral None Reported. Results Created Date Observation Date Name Description Value Unit Range Abnormal Flag Note LastModifiedBy Organization Detail LastModifiedTime Result Notes None recorded. Problems Name Problem SNOMED Code Status Onset Date Resolution Date Notes Provider Name and Address Organization Details Recorded Time Body mass index 25-29 - overweight 402299465 Active 2023 ROMI Gaston Attn: Ana caro,[address] [facility], [place], [address], [facility] 4 20:03:38 Overweight 181735237 Active 2023 ROMI Gaston Attn: Ana caro,[address] [facility], [place], [place], [address] [place] [address] 2, [facility] - [facility] 4 20:03:39 Feeling irritable 08322172 Active 2023 ROMI Gaston Attn: Ana caro,[address] [facility], [place], [place], [address] [place] [address] 2, [facility] 4 20:03:40 Positive screening for depression on PHQ-9 (Patient Health Questionnai re 9) 5568402621411 00 Active 2023 ROMI Gaston Attn: Ana caro,[address] [facility], [place], [address], [facility] 4 20:04:09 Problem Notes None recorded. Procedures Surgical History Date Name Laterality Status Provider Name and Address Organization Details Recorded Time Hernia Repair completed Vero Marion MA [facility] 03/08/2024 15:23:40 extraction of wisdom tooth completed Vero Marion MA [facility] 03/08/2024 15:23:44 Vasectomy completed Vero Marion MA [facility] 03/08/2024 16:32:29 Imaging Results None recorded. Procedure Notes None recorded. Medical Equipment None Reported. Allergies No known drug allergies Medications Name Sig Start Date Stop Date Status Note LastModified by Organization Details LastModified Time clobetasol 0.05 % topical cream APPLY TO INFLAMED SKIN ON THE BODY TWICE DAILY. AVOID FACE. 03/08 completed Not Available Not Available Not Available tramadol 50 mg tablet TAKE 1 TABLET BY MOUTH EVERY 6 HOURS NEEDED 03/08 completed Not Available Not Available Not Available meloxicam 7.5 mg tablet TAKE 1 TABLET TWICE A DAY BY ORAL ROUTE, FOR ANTI-INFL AMMATORY FOR SHOULDER. active Not Available Not Available No t Available citalopram 20 mg tablet TAKE 1 TABLET BY MOUTH EVERY DAY active Not Available Not Available No t Available testosteron e enanthate 100 mg/0.5 mL subcutaneou s auto-inject or Inject 0.75 mg every week by subcutane ous route. 09/13 completed Not Available Not Available Not Available Opzelura 1.5 % topical cream 03/08 completed Not Available Not Available Not Available Vitals Date Recorded Body weight Respiratory rate Body mass index (BMI) Body height Oxygen saturation Oxygen saturation in Arterial blood by Pulse oximetry Heart rate Systolic blood pressure Diastolic blood pressure Provider Name and Address Organization Details Last Updated DateTime 4 93749.5 1 g 20 /min 26.7 kg/m2 175.26 cm 97 % 97 % 86 /min 120 mm[Hg] 82 mm[Hg] Vero Marion MA [facility] 4 15:27:02 Date Recorded Systolic blood pressure Diastolic blood pressure Provider Name and Address Organization Details Last Updated DateTime 03/08/2024 110 mm[Hg] 80 mm[Hg] ROMI Gaston Attn: [employer], [place], [address], [facility] 03/08/2024 15:50:40 Date Recorded Body height Body mass index (BMI) Body weight Oxygen saturation Oxygen saturation in Arterial blood by Pulse oximetry Heart rate Systolic blood pressure Diastolic blood pressure Provider Name and Address Organization Details Last Updated DateTime 5 175.26 cm 28.6 kg/m2 91735.9 2 g 99 % 99 % 83 /min 120 mm[Hg] 78 mm[Hg] Miguel Angel Jacobsen MA [facility] 5 16:44:18 Date Recorded Respiratory rate Systolic blood pressure Diastolic blood pressure Provider Name and Address Organization Details Last Updated DateTime 09/13/2024 16 /min 130 mm[Hg] 80 mm[Hg] RMOI Gaston Attn: Accounting, [address] [place], [address], [facility] 09/13/2024 17:19:40 Social History Question Answer Notes LastModified by Organizat ion Details LastModified Time Tobacco Smoking Status Former Smoker quit years ago Vero Marion MA [facility], [place] - [facility] 03/08/2024 15:22:57 Do You Have An Advance Directive? No Information not available 09/13/2024 What Is Your Level Of Alcohol Consumption? Occasional Socially Information not available 09/13/2024 Are You Blind Or Do You Have Difficulty Seeing? No Information not available 03/08/2024 What Is Your Level Of Caffeine Consumption? Heavy Information not available 09/13/2024 In The 14 Days Before Symptom Onset, Have You Had Close Contact With A Laboratory-confi rmed COVID-19 While That Case Was Ill? No Information not available 03/08/2024 In The 14 Days Before Symptom Onset, Have You Had Close Contact With A Person Who Is Under Investigation For COVID-19 While That Person Was Ill? No Information not available 03/08/2024 Have You Been To An Area Known To Be High Risk For COVID-19? No Information not available 03/08/2024 Are You Currently Employed? Yes Information not available 09/13/2024 Are You Deaf Or Do You Have Serious Difficulty Hearing? No Information not available 03/08/2024 What Type Of Diet Are You Following? REGULAR Information not available 03/08/2024 What Is Your Occupation? [employer] Information not available 09/13/2024 Are There Any Guns Present In Your Home? No Information not available 03/08/2024 What Was The Date Of Your Most Recent Tobacco Screening? 09/13/2024 Information not available 09/13/2024 What Is Your Current Pack Years? 10packyears Information not available 03/08/2024 What Is Your Relationship Status? Information not available 09/13/2024 Do You Use Your Seat Belt Or Car Seat Routinely? Yes Information not available 03/08/2024 Do You Have Smoke And Carbon Monoxide Detectors In Your Home? Yes Information not available 03/08/2024 How Much Tobacco Do You Smoke? No Information not available 03/08/2024 Do You Feel Stressed (tense, Restless, Nervous, Or Anxious, Or Unable To Sleep At Night)? [id number] Information not available 09/13/2024 Do You Use Any Illicit Or Recreational Drugs? No Information not available 03/08/2024 Do You Use Sunscreen Routinely? No Information not available 09/13/2024 Has Tobacco Cessation Counseling Been Provided? No Information not available 03/08/2024 Do You Or Have You Ever Used Any Other Forms Of Tobacco Or Nicotine? No Information not available 03/08/2024 Sex: Male Functional Status Question Answer Note LastModified by Organizat ion Details LastModified Time Are you able to care for yourself? Yes Information not available 03/08/2024 What is your exercise level? Moderate 4 days out of the week Information not available 03/08/2024 Mental Status None recorded. Family History Relationship Description Onset Age of this Age Resolved Age Notes LastModified by Organization Details LastModified Time Mother Diabetes mellitus [email or web address] Not available 2023 15:21:56 Mother Hypertensive disorder [email or web address] Not available 2023 15:22:08 Mother Depressive disorder [email or web address] Not available 2023 16:32:42 Mother Disorder of thyroid gland tcarterma Not available 2023 16:32:51 Father Diabetes mellitus [email or web address] Not available 2023 15:21:56 Father Hypertensive disorder tcarterma Not available 2023 15:22:08 Father Malignant neoplastic disease 63 tcarterma Not available 2023 15:22:19 Medical History Condition Response Seizures/Epilepsy N Hepatitis N Heart Attack (SC) N Thyroid Problems N Heart Failure N Asthma Y Allergies Y Immunizations Vaccine Type Date Status Note Provider Nam e and Address Organization Details Recorded Time COVID-19, mRNA, LNP-S, PF, 30 mcg/0.3 mL dose 05/17/2021 completed Miguel Angel Jacobsen [place], [place] [facility] 09/13/2024 16:41:12 COVID-19, mRNA, LNP-S, PF, 30 mcg/0.3 mL dose 06/07/2021 completed Miguel Angel Jacobsen MA [place], [place] - [facility] 09/13/2024 16:41:12 tetanus toxoid, adsorbed 03/28/2012 completed Miguel Angel Jacobsen MA [place] - [facility] 09/13/2024 16:41:12 Past Encounters Encounter ID Performer Location Encounter Start Date Encounter Closed Date Diagnosis/Indication Diagnosis SNOMED-CT Code Diagnosis ICD10 Code Diagnosis Note [id number] ROMI Gaston [facility] [employer] [address] [place] [address] 03/08/2024 15:12:53 03/08/2024 16:24:04 Body mass index 25-29 - overweight 796228247 Z68.26 Overweight 215579377 E66 .3 Adult heal th examination 455464401 Z00.00 Annual wellness exam completed and labs are recently completed from [facility]. The patient will get us a copy of all of these labs for our file. Feeling irritable 812615 07 R45.4 Refill on citalopram 20 mg daily Positive s creening for depression on PHQ-9 (Patient Health Questionnaire 9) 1019893992 73901 Z13.31 Patient scored a 5 on screening today. No medication changes are necessary. [id number] ROMI Gaston [facility] [employer] [address] [place] [address] 09/13/2024 16:29:24 09/19/2024 10:15:45 Body mass index 25-29 - overweight 016754704 Z68.28 BMI 28.6 Cholesterol screening 27 5160554 Z13.220 Fasting lipids are due Diabetes m ellitus screening 937419480 Z13.1 Diabetes screening is due Thyroid di sorder screening 729933563 Z13.29 Thyroid function testing due Long-term drug therapy 319446606 Z79.891 cmp, cbc and b12, folate labs are due Screening for malignant neoplasm of prostate 765198370 Z12.5 Annual PSA due Male hypogonadism 266429 06 E29.1 Screening testostero ne level ordered with history of hypogonadi sm being treated at [facility] Feeling irritable 618280 07 R45.4 Back on citalopram 20 mg daily. Stable and feeling improvemen ts Atypical chest pain 1025 88973 R07.89 Refer for treadmill nuclear stress test for atypical chest pain worse during emotional stress test. Health Concerns Section Related Observation LastModified by Organization Detai ls LastModified Time None Recorded Concern Status LastModified by Organization Details LastModified Time None Recorded Advance Directives Directive N: Payers Encounter Date Sequence Insurance Name Policy Number Policy Perales Covered Member ID Perales Member ID Guarantor Name 03/08/2024 1 [place] [id number] 2 Cm Ayala [id number] Cm Ayala 09/13/2024 1 [place] [id number] Cm Ayala [id number] Cm Ayala Notes Date Note Type Note Provider Name and Address Organization Details Recorded Time 03/08/2024 text/html Patient takes citalopram 20 mg daily for underlying irritability and mood stabilization. He feels stable on this dosing without complaints. He is up-to-date on labs from [facility] in which he is taking testosterone weekly injections, which is a new regimen for him. ROMI Gaston Attn: Accounting,[address] [place], [address], [place] [facility] 03/25/2024 20:04:24 09/13/2024 text/html Angina/Chest PainReported bypatient.Location :middle chest Quality:pressure;t ightness Severity:not limiting Duration:lasts seconds Onset/Timing:has noted for months (On and off) Context:occurs with emotional stress Alleviating Factors:relieved with rest Aggravating Factors:worse with stress/emotional upset Associated Symptoms:no dyspnea; no decrease in exercise capacity; no fatigue; no nocturnal episodes; no resting episodes; no associated palpitations; no associated dizziness Patient takes citalopram 20 mg daily for underlying irritability and mood stabilization. He feels stable on this dosing without complaints. He was seeing [facility] and was up-to-date on labs from them but he is no longer seeing them. He is due for all labs via this office. ROMI Gaston Attn: Accounting[address] [place], [address], [place] [facility] 09/25/2024 00:30:24
== END 2024-11-10 08:18 | disposition home or self-care (01) ==
PROVIDERS: PCP Physician Assistant; Visit Provider Physician Assistant
DX: R07.89 Other chest pain (principal)
CPT/HCPCS: 78452; 93017; A9502